=== PATIENT | male | born 2005 | race Caucasian/White ===

== ENCOUNTER 2023-07-08 13:38 | Inpatient (IN) | payer OTHER ==
[~2023-07-08] VITALS: Ht 175.3 cm; Wt 67.7 kg
[2023-07-08 16:06] LABS: HEMATOCRIT 43.6 % (39.0-48.0); MEAN CELL VOLUME 85.2 fL (80.0-100.00); MEAN CORPUSCULAR HEMOGLOBIN 29.3 pg (27.00-32.0); MEAN CORPUSCULAR HGB CONC 34.4 g/dl (32.0-36.0); RED BLOOD COUNT 5.12 M/uL (4.00-6.00); RED CELL DISTRIBUTION WIDTH 12.3 % (11.5-14.5)
[2023-07-08 16:11] LABS: PLATELET COUNT 60 K/uL (150-450)
[2023-07-08 16:24] LABS: BILIRUBIN TOTAL 0.61 mg/dL (0.3-1.2); CALCIUM 8.4 mg/dL (8.5-10.1); CREATININE SERUM 0.96 mg/dL (0.70-1.30); GFR 100.9; GLOBULINA 3.2 G/DL (2.4-3.5); POTASSIUM 3.69 mEq/L (3.5-5.1); TOTAL PROTEIN 7.2 gm/dL (6.4-8.2)
[2023-07-08 18:11] LABS: INR 1.14; PROTHROMBIN TIME 11.9 SECONDS (9.0-11.5)
[2023-07-08 20:41] LABS: PH,URINE 6.5 (5.0-8.0); URINE APPEARANCE Clear; URINE BILIRRUBIN Negative (NEGATIVE); URINE BLOOD Negative; URINE COLOR Yellow; URINE GLUCOSE Negative (NEGATIVE); URINE LEUKOCYTE Negative; URINE NITRATE Negative; URINE PROTEIN Negative (NEGATIVE)
[2023-07-08 20:42] LABS: URINE EPITHELIAL CELLS 6.7 uL (0.0-38.8)
[2023-07-08 20:43] LABS: URINE BACTERIA 2.5 uL (0.0-1933); URINE RBC 0.7 uL (0.0-20.8); URINE WBC 1.3 uL (0.0-23.2)
[2023-07-09 07:04] LABS: HEMATOCRIT 39.4 % (39.0-48.0); HEMOGLOBIN 13.8 g/dL (13-16.00); MEAN CELL VOLUME 84.1 fL (80.0-100.00); MEAN CORPUSCULAR HEMOGLOBIN 29.4 pg (27.00-32.0); RED BLOOD COUNT 4.68 M/uL (4.00-6.00); RED CELL DISTRIBUTION WIDTH 12.6 % (11.5-14.5)
[2023-07-09 07:20] LABS: ALBUMIN 3.3 gm/dL (3.4-5.0); BILIRUBIN TOTAL 0.49 mg/dL (0.3-1.2); CALCIUM 7.8 mg/dL (8.5-10.1); CREATININE SERUM 0.7 mg/dL (0.70-1.30); GFR 145.28; GLOBULINA 2.4 G/DL (2.4-3.5); TOTAL PROTEIN 5.7 gm/dL (6.4-8.2)
[2023-07-09 07:22] LABS: PLATELET COUNT 44 K/uL (150-450); POTASSIUM 3.91 mEq/L (3.5-5.1)
[2023-07-09 08:19] LABS: URINE APPEARANCE Clear; URINE BILIRRUBIN Negative (NEGATIVE); URINE BLOOD Negative; URINE COLOR Yellow; URINE GLUCOSE Negative (NEGATIVE); URINE LEUKOCYTE Negative; URINE NITRATE Negative; URINE PROTEIN Negative (NEGATIVE)
[2023-07-09 08:21] LABS: URINE EPITHELIAL CELLS 1.8 uL (0.0-38.8); URINE RBC 2.1 uL (0.0-20.8); URINE WBC 7.4 uL (0.0-23.2)
[2023-07-09 08:24] LABS: URINE BACTERIA 3.7 uL (0.0-1933)
[2023-07-09 12:52] LABS: HEMATOCRIT 39.5 % (39.0-48.0); HEMOGLOBIN 13.6 g/dL (13-16.00); MEAN CELL VOLUME 84.4 fL (80.0-100.00); MEAN CORPUSCULAR HEMOGLOBIN 29.2 pg (27.00-32.0); MEAN CORPUSCULAR HGB CONC 34.6 g/dl (32.0-36.0); RED BLOOD COUNT 4.67 M/uL (4.00-6.00); RED CELL DISTRIBUTION WIDTH 12.6 % (11.5-14.5)
[2023-07-09 13:05] LABS: PLATELET COUNT 47 K/uL (150-450)
[2023-07-10 07:48] LABS: HEMATOCRIT 40.2 % (39.0-48.0); HEMOGLOBIN 13.7 g/dL (13-16.00); MEAN CORPUSCULAR HEMOGLOBIN 29.3 pg (27.00-32.0); MEAN CORPUSCULAR HGB CONC 34.1 g/dl (32.0-36.0); RED BLOOD COUNT 4.68 M/uL (4.00-6.00); RED CELL DISTRIBUTION WIDTH 12.4 % (11.5-14.5)
[2023-07-10 08:38] LABS: PLATELET COUNT 50 K/uL (150-450)
[2023-07-11 09:18] LABS: MEAN CELL VOLUME 86.1 fL (80.0-100.00); MEAN CORPUSCULAR HEMOGLOBIN 29.3 pg (27.00-32.0); MEAN CORPUSCULAR HGB CONC 34.1 g/dl (32.0-36.0); RED BLOOD COUNT 4.77 M/uL (4.00-6.00); RED CELL DISTRIBUTION WIDTH 12.2 % (11.5-14.5)
[2023-07-11 09:28] LABS: PLATELET COUNT 72 K/uL (150-450)
== END 2023-07-11 10:52 | disposition home or self-care (01) | DRG 866 ==
LOC: ER 13:40 → EMR PED 13:40 → PED 17:25
PROVIDERS: Emergency Medicine Pediatric Emergency Medicine; Pediatrics; ADMIT Emergency Medicine; ATTEND Emergency Medicine
DX: A90 Dengue fever [classical dengue] (principal); D69.6 Thrombocytopenia, unspecified